=== PATIENT | female | born 1965 | race Caucasian/White ===

== ENCOUNTER 2020-04-08 01:56 | Outpatient (RCR) | payer BC, SELFPAY ==
[2020-03-11] MEDS: Normal Saline Flush 10 ML SYR IVP (11:07)
[2020-03-11] MEDS: NATALIZUMAB 300 MG in Normal Saline 100 ML 115 MG IV (11:22)
[2020-04-08] MEDS: Normal Saline Flush 10 ML SYR IVP (11:00)
[2020-04-08] MEDS: NATALIZUMAB 300 MG in Normal Saline 100 ML 115 MG IV (11:06)
[2020-04-08 11:12] VITALS: BP 111/56; PULSE 61; RESP 18; TEMP 36.2; O2SAT 97
[2020-04-08] MEDS: Normal Saline 1,000 ML 50 ML IV (12:05)
[2020-04-08 13:05] VITALS: BP 97/56; PULSE 62; RESP 18; TEMP 36.1; O2SAT 97
== END 2020-04-09 23:59 | disposition home or self-care (01) ==
LOC: INF 01:56
PROVIDERS: Visit Provider Internal Medicine
DX: G35 Multiple sclerosis (principal)
CPT/HCPCS: 96365; 96366; J2323

== ENCOUNTER 2020-05-06 04:09 | Outpatient (RCR) | payer BC, SELFPAY ==
[2020-05-06] MEDS: Normal Saline Flush 10 ML SYR IVP (11:23)
[2020-05-06] MEDS: NATALIZUMAB 300 MG in Normal Saline 100 ML 115 MG IV (11:23)
== END 2020-05-10 23:59 | disposition home or self-care (01) ==
LOC: INF 04:09
PROVIDERS: Visit Provider Internal Medicine
DX: G35 Multiple sclerosis (principal)
CPT/HCPCS: 96365; J2323